=== PATIENT | female | born 1950 | race Caucasian/White ===

== ENCOUNTER 2024-04-23 06:16 | Inpatient (IN) ==
[2024-04-23] MEDS: NOZIN NASAL SANITIZER TP ONE (07:00)
[2024-04-23] MEDS: NS IV PRN (07:00)
[2024-04-23] MEDS: DUONEB 0.5 MG/3 MG (3 mL) NEB ONE (07:07)
[2024-04-23] MEDS: ZOFRAN INJ 4 MG VIAL IVP PRN (07:15)
[2024-04-23] MEDS: NS 1,000 ML IV 1,000 ML ONE ×2 (07:15→16:26)
[2024-04-23] MEDS: PEPCID 20 MG VIAL IVP PRN (07:15)
[2024-04-23 07:26] VITALS: BMI 25.4
[2024-04-23] MEDS ORDERED: SUPRANE IN ONE (08:14)
[2024-04-23] MEDS: VERSED IVP PRN (08:14)
[2024-04-23] MEDS: ANCEF VIAL 1 GRAM ONE (08:16)
[2024-04-23] MEDS: NS 100 ML IV 100 ML ONE (08:16)
[2024-04-23] MEDS: ANCEF VIAL 1 GRAM IV PRN (08:20)
[2024-04-23] MEDS: DIPRIVAN VIAL 160 ML IVP PRN (08:21)
[2024-04-23] MEDS: FENTANYL VIAL INJ 100 mcg IVP PRN (08:44)
[2024-04-23] MEDS: VISIPAQUE 100 ML ONE (08:46)
[2024-04-23] MEDS: MARCAINE 0.5% ONE (08:46)
[2024-04-23] MEDS: HEPARIN SODIUM IN D5W 75,000 UNITS/1,500 ML BAG ONE (08:46)
[2024-04-23] MEDS: HEPARIN SODIUM INJ 5000 UNITS IVP PRN (08:53)
[2024-04-23] MEDS: BREVIBLOC IVP PRN (09:00)
[2024-04-23] MEDS: EPHEDRINE SULFATE INJ IVP PRN (09:11)
[2024-04-23] MEDS: NEO-SYNEPHRINE INJ IVP PRN (09:22)
[2024-04-23] MEDS: ROBINUL IVP PRN (09:32)
[2024-04-23] MEDS: ZEMURON 100 MG VIAL IVP PRN (09:44)
[2024-04-23] MEDS: BRIDION IVP PRN (10:01)
--- NOTE | 2024-04-23 10:22 | OR.IMMED ---
IMMEDIATE POST-OP NOTE Immediate Post-Op Note Date of surgery/procedure: 04/23/24 Pre-Op Diagnosis: Severe stenosis left internal carotid artery , NIHSS score pre-op was 0 Post-Op Diagnosis: same Procedure: left internal carotid artery stenting Description of Procedure: see dictation Surgeon/H[employer] Judge: Greg Findings: > 70 % stenosis left ICA Estimated Blood Loss: 20 cc Drains: NONE Progress Notes: patient with no neurological deficits post-procedure. Will begin aspirin, Statin and Plavix and monitor blood pressure in the ICU setting
[2024-04-23] MEDS ORDERED: NovoLIN R (or HumuLIN R) SUBCUT PRN (10:25)
[2024-04-23] MEDS: LR 1,000 ML IV 1,000 ML IV SCH (11:33)
[2024-04-23] MEDS: NICOTINE PATCH TD SCH (12:29)
[2024-04-23] MEDS: ASPIRIN EC 81 MG PO SCH (12:44)
[2024-04-23] MEDS: PLAVIX PO STA (12:45)
[2024-04-23] MEDS: CRESTOR TAB 10 MG PO STA (12:47)
[2024-04-23] MEDS: PERCOCET TAB 5/325 MG PO PRN (12:48)
[2024-04-23] MEDS: BRIDION ONE (16:19)
[2024-04-23] MEDS: DIPRIVAN VIAL 20 ML ONE (16:20)
[2024-04-23] MEDS: FENTANYL VIAL INJ 100 mcg ONE ×2 (16:20→16:23)
[2024-04-23] MEDS: EPHEDRINE SULFATE INJ ONE (16:20)
[2024-04-23] MEDS: NEO-SYNEPHRINE INJ ONE (16:21)
[2024-04-23] MEDS: VERSED ONE (16:21)
[2024-04-23] MEDS: HEPARIN SODIUM INJ 5000 UNITS ONE (16:21)
[2024-04-23] MEDS: ZOFRAN INJ 4 MG VIAL ONE (16:22)
[2024-04-23] MEDS: ZEMURON 100 MG VIAL ONE (16:22)
[2024-04-23] MEDS: PEPCID 20 MG VIAL ONE (16:22)
[2024-04-23] MEDS: XYLOCAINE 2 % (PLAIN) ONE (16:23)
[2024-04-23] MEDS: ROBINUL ONE (16:23)
[2024-04-23] MEDS: NS 500 ML IV 500 ML IV ONE (16:23)
[2024-04-23] MEDS: BREVIBLOC ONE (16:24)
[2024-04-23] MEDS: PLAVIX PO SCH (16:53)
[2024-04-23] MEDS: SNACK - Diabetic Appropriate PO SCH (20:36)
[2024-04-23] MEDS ORDERED: CRESTOR TAB 10 MG PO SCH (21:00)
--- NOTE | 2024-04-23 22:03 | NOTE.SOAP ---
Soap Note Note for Day of Date of Exam: 04/23/24 Subjective Data Subjective Data: S/P left internal carotid artery stenting earlier today. Post procedure has done well with no neurological deficits and is tolerating a regular diet. Objective Data Temperature: 98.5 F Pulse Rate: 88 Respiratory Rate: 20 Blood Pressure: 148/94 Objective Data: No neurological deficits , NIHSS score post procedure is 0. Assessment Assessment: S/P stenting of severe stenosis left ICA, doing well Plan Plan: D/C su in AM
[2024-04-23] MEDS: ELIQUIS PO SCH (22:38)
[2024-04-23] MEDS: DESYREL PO SCH (22:38)
[2024-04-24 05:09] LABS: BASOPHILS # (AUTO) 0.1 X10^3/uL (0.0-0.1); BASOPHILS % (AUTO) 0.7 % (0.2-1.0); EOSINOPHILS # (AUTO) 0.2 x10^3/uL (0.0-0.2); EOSINOPHILS % (AUTO) 2.6 % (0.9-2.9); HEMATOCRIT 32.3 % (36.0-47.0); HEMOGLOBIN 10.9 g/dL (12.0-16.0); LYMPHOCYTES # (AUTO) 0.8 X10^3/uL (1.3-2.9); LYMPHOCYTES % (AUTO) 9.5 % (21.0-51.0); MEAN CORPUSCULAR HEMOGLOBIN 28.6 pg (27.0-34.0); MEAN CORPUSCULAR HGB CONC 33.8 g/dL (33.0-35.0); MEAN CORPUSCULAR VOLUME 84.6 fL (80.0-100.0); MEAN PLATELET VOLUME 8.4 fL (7.4-11.0); MONOCYTES # (AUTO) 0.9 x10^3/uL (0.3-0.8); MONOCYTES % (AUTO) 11.1 % (0.0-13.0); NEUTROPHILS # (AUTO) 6.2 x10^3/uL (2.2-4.8); NEUTROPHILS % (AUTO) 76.1 % (42.0-75.0); PLATELET COUNT 191 X10^3/uL (150.0-450.0); RED BLOOD COUNT 3.82 X10^6/uL (3.5-5.4); RED CELL DISTRIBUTION WIDTH 14.4 % (11.6-16.5); WHITE BLOOD COUNT 8.1 X10^3/uL (3.6-10.0)
[2024-04-24] MEDS ORDERED: ZESTRIL TAB 20 MG ONE (08:02)
[2024-04-24] MEDS: NORVASC TAB 5 MG PO SCH (08:15)
[2024-04-24] MEDS: PROTONIX TAB 40 MG PO SCH (08:15)
[2024-04-24] MEDS: ZESTRIL TAB 20 MG PO SCH (08:16)
[2024-04-24] MEDS: ZETIA TAB 10 MG PO SCH (08:16)
[2024-04-24] MEDS ORDERED: PLAVIX PO SCH (09:00)
[2024-04-24] MEDS ORDERED: ASPIRIN EC 81 MG PO SCH (09:00)
[2024-04-24] MEDS ORDERED: NICOTINE PATCH TD SCH (09:00)
--- NOTE | 2024-04-24 12:38 | W.DIS.FURT ---
Summary of Discharge Discharge Summary of Date Date of Exam: 04/24/24 Admission Date Date of Admission: 04/23/24 Admission Diagnosis Hospital Course: 73 yo female with significant recurrent left internal carotid artery stenosis of greater than 90 % by f/u ultrasound . She underwent left internal carotid artery stenting without complication. She will be discharged home on her usual home medications including her statin as well as Plavix , 75 mg po daily and aspirin , 81 mg daily. Plavix will be facilities painter for 4 weeks and the statin and aspirin indefinitely Vital Signs: Vital Signs (72 hours) 04/23/24 22:02 04/23/24 06:38 04/23/24 06:38 Temperature 98.5 F 97.6 F Pulse Rate 88 85 Pulse Rate [Bilateral Radial] Respiratory Rate 20 18 Blood Pressure 148/94 145/67 Blood Pressure [Right Arm] O2 Sat by Pulse Oximetry 97 Oxygen Delivery Method Room Air Room Air Oxygen Flow Rate FIO2% 04/23/24 10:10 04/23/24 10:15 04/23/24 10:20 Temperature 97.1 F L Pulse Rate 110 H 112 H 112 H Pulse Rate [Bilateral Radial] Respiratory Rate 18 18 18 Blood Pressure 157/72 158/73 154/73 Blood Pressure [Right Arm] O2 Sat by Pulse Oximetry 97 99 100 Oxygen Delivery Method Aerosol Face Tent Aerosol Face Tent Aerosol Face Tent Oxygen Flow Rate FIO2% 04/23/24 10:25 04/23/24 10:35 04/23/24 10:40 Temperature Pulse Rate 113 H 107 H 109 H Pulse Rate [Bilateral Radial] Respiratory Rate 18 18 17 Blood Pressure 147/81 158/72 151/68 Blood Pressure [Right Arm] O2 Sat by Pulse Oximetry 96 95 96 Oxygen Delivery Method Nasal Cannula Nasal Cannula Nasal Cannula Oxygen Flow Rate FIO2% 04/23/24 10:30 04/23/24 10:55 04/23/24 12:48 Temperature Pulse Rate 112 H Pulse Rate [Bilateral Radial] Respiratory Rate 18 20 Blood Pressure 152/70 Blood Pressure [Right Arm] O2 Sat by Pulse Oximetry 95 Oxygen Delivery Method Nasal Cannula Nasal Cannula Oxygen Flow Rate 3 FIO2% 32 04/23/24 10:55 04/23/24 11:10 04/23/24 11:25 Temperature 97.5 F L 97.5 F L 97.5 F L Pulse Rate Pulse Rate [Bilateral Radial] 105 H 97 H 108 H Respiratory Rate 13 15 15 Blood Pressure Blood Pressure [Right Arm] 157/70 155/69 155/70 O2 Sat by Pulse Oximetry 100 100 96 Oxygen Delivery Method Nasal Cannula Nasal Cannula Nasal Cannula Oxygen Flow Rate FIO2% 04/23/24 11:40 04/23/24 11:55 04/23/24 10:55 Temperature 98.3 F 98.3 F 97.5 F L Pulse Rate 105 H Pulse Rate [Bilateral Radial] 98 H 90 Respiratory Rate 15 14 13 Blood Pressure 157/70 Blood Pressure [Right Arm] 148/69 156/70 O2 Sat by Pulse Oximetry 97 100 100 Oxygen Delivery Method Nasal Cannula Nasal Cannula Nasal Cannula Oxygen Flow Rate 3 FIO2% 04/23/24 12:00 04/23/24 13:00 04/23/24 12:55 Temperature 98.3 F 98.3 F 98.3 F Pulse Rate 90 88 Pulse Rate [Bilateral Radial] 88 Respiratory Rate 14 14 14 Blood Pressure 156/70 156/70 Blood Pressure [Right Arm] 156/70 O2 Sat by Pulse Oximetry 100 100 100 Oxygen Delivery Method Nasal Cannula Nasal Cannula Nasal Cannula Oxygen Flow Rate 3 3 FIO2% 04/23/24 13:55 04/23/24 14:55 04/23/24 15:55 Temperature 98.3 F 98.3 F 98.6 F Pulse Rate Pulse Rate [Bilateral Radial] 102 H 102 H 75 Respiratory Rate 20 16 14 Blood Pressure Blood Pressure [Right Arm] 141/65 143/65 140/65 O2 Sat by Pulse Oximetry 100 96 100 Oxygen Delivery Method Nasal Cannula Nasal Cannula Nasal Cannula Oxygen Flow Rate FIO2% 04/23/24 13:48 04/23/24 17:00 04/23/24 18:00 Temperature Pulse Rate Pulse Rate [Bilateral Radial] 75 88 Respiratory Rate 20 14 20 Blood Pressure Blood Pressure [Right Arm] 110/53 148/94 O2 Sat by Pulse Oximetry 96 100 Oxygen Delivery Method Nasal Cannula Nasal Cannula Oxygen Flow Rate FIO2% 04/23/24 20:21 04/23/24 22:38 04/23/24 19:00 Temperature Pulse Rate Pulse Rate [Bilateral Radial] 87 Respiratory Rate 20 25 H Blood Pressure Blood Pressure [Right Arm] 153/89 O2 Sat by Pulse Oximetry 88 L Oxygen Delivery Method Nasal Cannula Nasal Cannula Oxygen Flow Rate 3 FIO2% 36 04/23/24 20:00 04/23/24 21:00 04/23/24 22:00 Temperature 98.3 F Pulse Rate Pulse Rate [Bilateral Radial] 90 72 88 Respiratory Rate 12 14 18 Blood Pressure Blood Pressure [Right Arm] 138/63 115/53 140/63 O2 Sat by Pulse Oximetry 99 100 100 Oxygen Delivery Method Nasal Cannula Nasal Cannula Nasal Cannula Oxygen Flow Rate FIO2% 04/23/24 19:00 04/23/24 20:00 04/23/24 21:00 Temperature 98.3 F Pulse Rate 87 90 72 Pulse Rate [Bilateral Radial] Respiratory Rate 25 H 12 14 Blood Pressure 153/89 138/63 115/53 Blood Pressure [Right Arm] O2 Sat by Pulse Oximetry 88 L 99 100 Oxygen Delivery Method Nasal Cannula Nasal Cannula Nasal Cannula Oxygen Flow Rate 3 3 3 FIO2% 04/23/24 22:00 04/24/24 01:00 04/24/24 02:00 Temperature 98 F Pulse Rate 88 Pulse Rate [Bilateral Radial] 68 71 Respiratory Rate 18 21 20 Blood Pressure 140/63 Blood Pressure [Right Arm] 135/62 119/58 O2 Sat by Pulse Oximetry 100 98 100 Oxygen Delivery Method Nasal Cannula Nasal Cannula Nasal Cannula Oxygen Flow Rate 3 FIO2% 04/24/24 03:00 04/23/24 19:00 04/23/24 23:38 Temperature Pulse Rate Pulse Rate [Bilateral Radial] 82 Respiratory Rate 26 H 21 Blood Pressure Blood Pressure [Right Arm] 135/82 O2 Sat by Pulse Oximetry 100 Oxygen Delivery Method Nasal Cannula Nasal Cannula Oxygen Flow Rate 2 FIO2% 04/24/24 04:00 04/24/24 05:00 04/24/24 08:17 Temperature 98.3 F Pulse Rate Pulse Rate [Bilateral Radial] 85 70 Respiratory Rate 23 18 18 Blood Pressure Blood Pressure [Right Arm] 131/96 131/62 O2 Sat by Pulse Oximetry 99 92 L Oxygen Delivery Method Nasal Cannula Nasal Cannula Oxygen Flow Rate FIO2% 04/24/24 07:03 04/24/24 08:14 04/24/24 08:30 Temperature 98.2 F Pulse Rate 77 92 H 78 Pulse Rate [Bilateral Radial] Respiratory Rate 14 23 18 Blood Pressure 161/71 175/76 161/66 Blood Pressure [Right Arm] O2 Sat by Pulse Oximetry 100 97 96 Oxygen Delivery Method Oxygen Flow Rate FIO2% 04/24/24 09:01 04/24/24 09:31 04/24/24 07:00 Temperature Pulse Rate 76 75 Pulse Rate [Bilateral Radial] Respiratory Rate 18 16 Blood Pressure 154/70 157/69 Blood Pressure [Right Arm] O2 Sat by Pulse Oximetry 93 L 96 Oxygen Delivery Method Room Air Oxygen Flow Rate FIO2% Labs: Laboratory Last Values WBC 8.1 X10^3/uL (3.6-10.0) 04/24/24 04:39 RBC 3.82 X10^6/uL (3.5-5.4) 04/24/24 04:39 Hgb 10.9 g/dL (12.0-16.0) L 04/24/24 04:39 Hct 32.3 % (36.0-47.0) L 04/24/24 04:39 MCV 84.6 fL (80.0-100.0) 04/24/24 04:39 MCH 28.6 pg (27.0-34.0) 04/24/24 04:39 MCHC 33.8 g/dL (33.0-35.0) 04/24/24 04:39 RDW 14.4 % (11.6-16.5) 04/24/24 04:39 Plt Count 191 X10^3/uL (150.0-450.0) 04/24/24 04:39 MPV 8.4 fL (7.4-11.0) 04/24/24 04:39 Neut % (Auto) 76.1 % (42.0-75.0) H 04/24/24 04:39 Lymph % (Auto) 9.5 % (21.0-51.0) L 04/24/24 04:39 [place] % (Auto) 11.1 % (0.0-13.0) 04/24/24 04:39 Eos % (Auto) 2.6 % (0.9-2.9) 04/24/24 04:39 Baso % (Auto) 0.7 % (0.2-1.0) 04/24/24 04:39 Neut # (Auto) 6.2 x10^3/uL (2.2-4.8) H 04/24/24 04:39 Lymph # (Auto) 0.8 X10^3/uL (1.3-2.9) L 04/24/24 04:39 [place] # (Auto) 0.9 x10^3/uL (0.3-0.8) H 04/24/24 04:39 Eos # (Auto) 0.2 x10^3/uL (0.0-0.2) 04/24/24 04:39 Baso # (Auto) 0.1 X10^3/uL (0.0-0.1) 04/24/24 04:39 Absolute Nucleated RBC 0.0 /100WBC 04/24/24 04:39 POC Glucose (mg/dL) 122 mg/dL (65-99) H 04/24/24 05:13 Reason For Visit: LEFT CAROTID ARTERY STENOSIS Discharge Date Discharge Date: 04/24/24 Discharge Diagnosis Plan of Treatment: Continue with present treatment and follow up plan. Pt is to keep follow up appointment as instructed and take medications as ordered. Discharge Medications Discharge Medications: No Known Allergies Allergy (Verified 04/23/24 07:45) CONTINUE taking the following medications amlodipine 5 mg tablet 5 mg PO BID 04/23/24 [History] apixaban 5 mg tablet (Eliquis) mg PO 2XD 04/23/24 [History] aspirin 81 mg capsule mg PO QDAY 04/23/24 [History] cholecalciferol (vitamin D3) 100 mcg (4,000 unit) capsule PO QDAY 04/23/24 [History] clopidogrel 75 mg tablet 75 mg PO QDAY 04/23/24 [History] eszopiclone 1 mg tablet 1 mg PO QHS Immediately before bedtime once daily. 04/23/24 [History] ezetimibe 10 mg tablet 10 mg PO QDAY 04/23/24 [History] ferrous sulfate 325 mg (65 mg iron) capsule,extended release mg PO QDAY 04/23/24 [History] gabapentin 100 mg capsule 100 mg PO TID 04/23/24 [History] lisinopril 20 mg tablet 20 mg PO QDAY 04/23/24 [History] multivitamin tab PO QDAY 04/23/24 [History] pantoprazole 40 mg tablet,delayed release 40 mg PO BID 04/23/24 [History] rosuvastatin 20 mg sprinkle capsule mg PO QDAY 04/23/24 [History] tramadol 50 mg tablet 50 mg PO Q6H PRN As needed for pain every 6 hrs. 04/23/24 [History] trazodone 50 mg tablet 50 mg PO QHS 04/23/24 [History] Discharge Disposition Assessment: see hospital course Discharge Plan Discharge Plan Hospital Course: 73 yo female with significant recurrent left internal carotid artery stenosis of greater than 90 % by f/u ultrasound . She underwent left internal carotid a rtery stenting without complication. She will be discharged home on her usual home medications including her statin as well as Plavix , 75 mg po daily and aspirin , 81 mg daily. Plavix will be facilities painter for 4 weeks and the statin and aspirin indefinitely Patient Disposition: HOME, SELF-CARE Condition: Stable Health Concerns: Post Hospitalization: new medications and changes needed to prevent readmission or further decline. Pt educated and given instructions on all concerns. Care Plan Goals: Problem: Pain/Alteration in Comfort Goal: Improve/ Resolve Pain; Achieve Pain Tolerance Instructions: Take pain medications as prescribed. Contact your primary care provider if your pain is unrelieved or worsens. Follow up with primary care provider as directed. Plan of Treatment: Continue with present treatment and follow up plan. Pt is to keep follow up appointment as instructed and take medications as ordered. Assessment: see hospital course Prescription drug monitoring program results: PDMP reviewed with concerns identified Prescriptions: Continued Eliquis 5 mg Tablet PO 2XD aspirin 81 mg Capsule PO QDAY cholecalciferol (vitamin D3) 100 mcg (4,000 unit) Capsule PO QDAY multivitamin Tablet PO QDAY amlodipine 5 mg Tablet 5 mg PO BID trazodone 50 mg Tablet 50 mg PO QHS tramadol 50 mg Tablet 50 mg PO Q6H PRN (Reason: As needed for pain every 6 hrs. ) rosuvastatin 20 mg Capsule, Sprinkle PO QDAY pantoprazole 40 mg Tablet,Delayed Release (Dr/Ec) 40 mg PO BID lisinopril 20 mg Tablet 20 mg PO QDAY gabapentin 100 mg Capsule 100 mg PO TID ferrous sulfate 325 mg (65 mg iron) Capsule, Extended Release PO QDAY ezetimibe 10 mg Tablet 10 mg PO QDAY eszopiclone 1 mg Tablet 1 mg PO QHS clopidogrel 75 mg tablet 75 mg PO QDAY Follow ups/Referrals Follow ups/Referrals: Cuco Garza [STAFF PHYSICIAN] - 05/09/24 9:45 am Instructions Instructions: Steps to Quit Smoking, [id number], Hepatic Artery Radioembolization, Care After, Managing the Challenge of Quitting Smoking Stand Alone Forms: Excuse From Work or School, Find Help Web Site, Post H ospital Follow Up Care
[2024-04-24 13:11] VITALS: BP 161/70; PULSE 68; RESP 17; TEMP 98.4; O2SAT 98
[2024-04-24] MEDS ORDERED: CRESTOR TAB 10 MG PO SCH (21:00)
--- NOTE | 2024-04-27 12:25 | DR.OPNOTE ---
OP NOTE Pre-Op Diagnosis: severe stenosis left internal carotid artery Post-Op Diagnosis: same Procedure Date Date Of Procedure: 04/24/24 Procedure: The patient was taken to the operative suite and placed in the supine position. General endotracheal anesthesis induced . The left neck extended and prepped and draped in sterile fashion . Time out for the procedure obtained . Ultrasound used to identify the right femoral vein and the skin overlying it infiltrated with 0.5% Marcaine . Ultrasound used to guide puncture of the right femoral vein and the 0.014 inch wire placed. Micro sheath placed over this wire into the vein and the small wire exchanged for a 0.035 inch wire and the micro sheath exchanged for the vascular sheath in the kit .The flow reversal device was connected to the venous sheath and back filling of blood allowed through the chamber. This was flushed with heparinized saline as well . Ultrasound used to identify the carotid artery in the space between the 2 heads of the sternocleidomastoid muscle . Skin just above the clavicle infiltrated with 0.5% Marcaine. A 2 cm transverse incision was made above the clavicle dissecting down into the space between the 2 heads of the muscle identifying the carotid artery and freeing it up sharply with Metzenbaum scissors. Vessel loop placed around the distal part of the carotid artery. Patient had been heparinized with 5,000 units of IV Heparin. Pursestring suture of 5-0 Prolene placed in the distal part of the carotid artery . Through the pursestring we placed the approach needle to a depth of 5 millimeters and placed a 0.014 inch wire. Needle removed and over the wire we place an injection catheter to a depth of 3 cm and carefully performed arteriogram showing severe recurrent stenosis of the takeoff of the left internal carotid artery of at least 80 % . The arterial end of the flow reversal device placed over the wire into the artery snugging it up against the arterial wall. Flow reversal/ neuroprotection intiated and the common carotid artery clamped below the flow reversal devise with an angled Debakey vascular clamp. 0.014 inch wire placed across the disease of the internal carotid artery and the stenosis dilated with a 4.0 mm x 25 mm angioplasty balloon. Balloon removed and a tapered 8-6 mm x 40mm stent positioned and deployed . After 2 minutes of flow reversal repeat arteriogram performed showing excellent results . No post procedure angioplasty was required . Total flow reversal time was 26 minutes. Flow reversal device removed from the artery and the pursestring suture tied into place with no further bleeing . The platysma of the neck incision closed with running 3-0 Vicryl suture and the skin closed with running 5-0 Vicryl sbcuticular suture and steri strips applied . Venous sheath removed from the femoral vein and direct pressure held for 10 minutes and dressing applied . Patient extubated and taken to PACU in good condition with no neurological deficit. Type of Anesthesia: General Anesthetic w/ETT Findings: 80 % or greater stenosis of the left internal carotid artery , recurrent , is s/p left carotid endarterectomy in the past. Type of Fluids Used:: Lactated Ringers EBL: minimal Hardware: 8-6x 40 mm tapered carotid artery stent Complications:: none Needle/Sponge Count:: correct Disposition/Condition: Pt. tolerated procedure without difficulty. Extubated in the OR and taken to PACU in stable condition.
== END 2024-04-24 13:00 | disposition home or self-care (01) | DRG 36 ==
LOC: ICU 06:16
PROVIDERS: ADMIT Surgery; ATTEND Surgery